=== PATIENT | female | born 1955 | race Caucasian/White ===

== ENCOUNTER 2021-08-26 09:41 | Outpatient (REF) | payer MEDICARE, SELFPAY ==
[2021-08-26 11:40] LABS: Hematocrit 36.1 % (37.0-47.0); Hemoglobin 12.4 g/dl (12.0-16.0); Mean Corpuscular HGB Conc 34.3 g/dl (31.0-35.0); Mean Corpuscular Hemoglobin 31.2 pg (27.0-33.0); Mean Corpuscular Volume 90.9 fL (80.0-98.0); Mean Platelet Volume 9.5 fL (9.4-12.3); Platelet Count 233 X10*3/uL (160-400); Red Blood Count 3.97 X10*6/uL (4.20-5.50); Red Cell Distribution Width 14.5 % (11.0-16.0); White Blood Count 4.6 X10*3/uL (4.8-10.8)
[2021-08-26 12:21] LABS: Alanine Aminotransferase 17 U/L (0-31); Albumin Level 4.3 g/dL (3.5-5.0); Alkaline Phosphatase 64 U/L (39-117); Anion Gap 11 (12-20); Aspartate Amino Transferase 19 U/L (5-31); Bilirubin Total 0.7 mg/dL (0.0-1.0); Blood Urea Nitrogen 32 mg/dL (9-16); Calcium 9.6 mg/dL (8.4-10.2); Carbon Dioxide 29 mmol/L (22-29); Chloride 99 mmol/L (96-108); Cholesterol 193 mg/dL; Estimated Glomerular Filt Rate > 60; Glucose Fasting 111 mg/dL (60-99); HDL Cholesterol 62 mg/dL; LDL Cholesterol Calculated 117 mg/dl; Potassium 3.8 mmol/L (3.3-5.1); Sodium 135 mmol/L (135-145); Total Protein 6.5 g/dL (6.5-8.0); Triglycerides 72 mg/dL
[2021-08-26 12:27] LABS: TSH reflex Free T4 1.25 uIU/mL (0.32-4.0); Vitamin D 25-OH Total 45.4 ng/mL (>30)
== END 2021-08-26 09:42 | disposition home or self-care (01) ==
LOC: HO.HMGCLDS 09:41
PROVIDERS: Visit Provider Internal Medicine
DX: Z00.00 Encounter for general adult medical examination without abnormal findings (principal); I10 Essential (primary) hypertension
CPT/HCPCS: 36415; 80053; 80061; 82306; 84443; 85027

== ENCOUNTER 2022-02-13 08:17 | Outpatient (REF) | payer MEDICARE, SELFPAY ==
[2022-02-13 11:31] LABS: Appearance Urine Clear; Color Urine Yellow; Glucose Urine UA Negative (Negative); Leukocyte Esterase Urine Small (1+) (Negative); Nitrite Urine Negative (Negative); Urine Blood Negative (Negative); Urine Ketones Negative (Negative); Urine Protein Negative (Neg-Trace)
[2022-02-13 11:37] LABS: Estimated Average Glucose 91 mg/dL; Hemoglobin A1c % 4.8 %
[2022-02-13 11:44] LABS: Bacteria Urine None Seen (None Seen); Hyaline Casts Urine 0-2 /LPF (0-2); RBC Urine 0-2 /HPF (0-2); Squamous Epithelial Cell Urine 0-2 /HPF (0-2); UACC Culture Trigger YES; WBC Urine 0-5 /HPF (0-5)
[2022-02-13 11:59] LABS: Creatinine Urine 28.66 mg/dL; Microalbumin Urine < 5.0 mg/L
[2022-02-13 12:01] LABS: TSH reflex Free T4 1.28 uIU/mL (0.32-4.0)
[2022-02-13 12:06] LABS: Alanine Aminotransferase 15 U/L (0-31); Albumin Level 4.2 g/dL (3.5-5.0); Alkaline Phosphatase 66 U/L (39-117); Anion Gap 16 (12-20); Aspartate Amino Transferase 20 U/L (5-31); Bilirubin Total 0.8 mg/dL (0.0-1.0); Blood Urea Nitrogen 31 mg/dL (9-16); Calcium 8.8 mg/dL (8.4-10.2); Carbon Dioxide 26 mmol/L (22-29); Chloride 99 mmol/L (96-108); Cholesterol 182 mg/dL; Estimated Glomerular Filt Rate > 60; Glucose Fasting 106 mg/dL (60-99); HDL Cholesterol 64 mg/dL; LDL Cholesterol Calculated 103 mg/dl; Potassium 3.5 mmol/L (3.3-5.1); Sodium 137 mmol/L (135-145); Total Protein 6.4 g/dL (6.5-8.0); Triglycerides 79 mg/dL
== END 2022-02-13 08:18 | disposition home or self-care (01) ==
LOC: HO.HMGCLDS 08:17
PROVIDERS: PCP Internal Medicine; Visit Provider Internal Medicine
DX: Z00.00 Encounter for general adult medical examination without abnormal findings (principal); I10 Essential (primary) hypertension; R73.9 Hyperglycemia, unspecified
CPT/HCPCS: 36415; 80053; 80061; 81001; 82043; 83036; 84443

== ENCOUNTER 2022-03-08 07:43 | Outpatient (REF) | payer MEDICARE, SELFPAY ==
--- NOTE | ~2022-03-08 | XR_ITS ---
EXAMINATION: XR BILATERAL HIPS WITH AP PELVIS CLINICAL INFORMATION: M25.559 - Pain in unspecified hip. COMPARISON: None TECHNIQUE: AP and frog-leg lateral views of each hip and an AP view of the pelvis. FINDINGS: Minimal osteoarthritis is present in the hips and pubic symphysis. Hip joint spaces appear relatively well preserved, though small osteophytes are present. There is more moderate osteoarthritis in the sacroiliac joints. No fracture or malalignment. No aggressive osseous lesions. Degenerative spondylosis is evident in the lower lumbar spine. Numerous surgical clips are present within the lower abdomen and pelvis. No acute soft tissue findings. Enthesopathic spurring is present at the anterior superior iliac spines. XR/XR hip BI w PEL1V IMPRESSION: 1. 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 2. 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 3. Degenerative spondylosis in the lower lumbar spine.
== END 2022-03-08 07:44 | disposition home or self-care (01) ==
LOC: HO.HOSX 07:43
PROVIDERS: Visit Provider Physician Assistant
DX: M70.71 Other bursitis of hip, right hip (principal); M70.72 Other bursitis of hip, left hip
CPT/HCPCS: 20610; 73521; 99202; J1040

== ENCOUNTER 2023-09-19 10:22 | Outpatient (REF) | payer MEDICARE, SELFPAY ==
[2023-09-19 13:36] LABS: MANUAL DIFF FLAG NO
[2023-09-19 13:50] LABS: Basophils Percent Auto 0.7 % (0-2); Eosinophils Absolute Auto 0.1 X10*3/uL (0.0-0.4); Eosinophils Percent Auto 2.3 % (0-4); Hematocrit 37.2 % (37.0-47.0); Hemoglobin 12.4 g/dl (12.0-16.0); Imm Gran Abs Auto 0.02 X10*3/uL (0.00-0.03); Imm Gran Pct Auto 0.4 % (0.0-0.4); Lymphocytes Absolute Auto 2.9 X10*3/uL (1.2-4.9); Lymphocytes Percent Auto 51.5 % (20-40); Mean Corpuscular HGB Conc 33.3 g/dl (31.0-35.0); Mean Corpuscular Hemoglobin 31.4 pg (27.0-33.0); Mean Corpuscular Volume 94.2 fL (80.0-98.0); Mean Platelet Volume 9.2 fL (9.4-12.3); Monocytes Absolute Auto 0.5 X10*3/uL (0.1-1.2); Monocytes Percent Auto 9.2 % (2-11); Neutrophils Percent Auto 35.9 % (45-73); Platelet Count 245 X10*3/uL (160-400); Red Blood Count 3.95 X10*6/uL (4.20-5.50); Red Cell Distribution Width 14.6 % (11.0-16.0); White Blood Count 5.7 X10*3/uL (4.8-10.8)
[2023-09-19 14:36] LABS: Alanine Aminotransferase 15 U/L (0-31); Albumin Level 4.1 g/dL (3.5-5.0); Alkaline Phosphatase 83 U/L (39-117); Anion Gap 11 (12-20); Aspartate Amino Transferase 18 U/L (5-31); Bilirubin Total 0.4 mg/dL (0.0-1.0); Blood Urea Nitrogen 20 mg/dL (9-16); Calcium 9.1 mg/dL (8.4-10.2); Carbon Dioxide 27 mmol/L (22-29); Chloride 105 mmol/L (96-108); Cholesterol 184 mg/dL (<200); Estimated Glomerular Filt Rate > 60; Glucose Fasting 104 mg/dL (60-99); HDL Cholesterol 66 mg/dL (>40); LDL Cholesterol Calculated 100 mg/dL (<100); Potassium 3.8 mmol/L (3.3-5.1); Sodium 139 mmol/L (135-145); Total Protein 6.7 g/dL (6.5-8.0); Triglycerides 91 mg/dL (<150)
[2023-09-19 14:40] LABS: TSH reflex Free T4 0.74 uIU/mL (0.32-4.0); Vitamin D 25-OH Total 68.1 ng/mL (>30)
== END 2023-09-19 10:23 | disposition home or self-care (01) ==
LOC: HO.HMGCLDS 10:22
PROVIDERS: PCP Internal Medicine; Visit Provider Internal Medicine
DX: Z00.00 Encounter for general adult medical examination without abnormal findings (principal); M85.80 Other specified disorders of bone density and structure, unspecified site; R73.9 Hyperglycemia, unspecified; I10 Essential (primary) hypertension
CPT/HCPCS: 36415; 80053; 80061; 82306; 84443; 85025

== ENCOUNTER 2023-09-22 07:26 | Outpatient (AMB) | payer MEDICARE, SELFPAY ==
--- NOTE | 2023-09-22 07:38 | MHC.PC.OV ---
Vital Signs 09/22/23 07:44 Height 4 ft 11 in Weight 175 lb BMI 35.3 BP 135/82 Blood Pressure Location Lt brachial Position Sitting Pulse 82 Pulse Source Pulse Oximeter Pulse Oximetry (%) 99 Oxygen Delivery Method Room Air Intake Visit Reasons: Annual PE Intake Note: Pt is here today for ehr PE: pt states hasn't taken b/p this morning Allergies azithromycin Allergy (Unknown, Verified 09/22/23 07:41) nausea bacitracin Allergy (Unknown, Verified 09/22/23 07:41) made the eye infection worst Sulfa (Sulfonamide Antibiotics) Allergy (Unknown, Verified 09/22/23 07:41) pt dont remember Medication List - Last Reconciled 09/22/23 by Cortney Gan MD ascorbic acid (vitamin C) 1 g PO DAILY cholecalciferol (vitamin D3) PO .daily fluticasone propionate 50 mcg/actuation (Flonase Allergy Relief) 1 spray intranasal DAILY lisinopril-hydrochlorothiazide 20-25 mg 1 tab PO DAILY multivitamin (Daily Multi-Vitamin) PO DAILY Saccharomyces boulardii (Daily Probiotic (S. boulardii)) PO .daily vitamin B complex PO .daily Tobacco use date assessed: 09/22/23 Fall risk assessment: No Falls in past year Last assessed Fall Risk: 09/22/23 Dental Screening Dental Screen Date: 09/22/23 Did you have a dental visit in the last 12 months?: No Was dental information given to patient?: No HPI Annual PE HPI Details Patient presents for physical PFSH Medical History (Updated 09/22/23 @ 08:19 by Cortney Gan MD) Hyperglycemia Normal breast exam Osteopenia Ovarian cancer Bursitis Acid reflux Hypertension Surgical History (Updated 09/22/23 @ 08:10 by Cortney Gan MD) H/O: hysterectomy Family History Mother Heart disease Brain aneurysm Father Brain aneurysm Social History Housing: House Patient Tobacco Use Status: Former Tobacco user (46 years ago ) Tobacco use type: Cigarette Years Smoked: 1 year e-Cigarette/Vaping Use: Never Used Second Hand Smoke Exposure: Yes service: No Current occupational status: employed 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 1. Little interest or pleasure in doing things: not at all 2. Feeling down, depressed, or hopeless: not at all 3. Trouble falling or staying asleep, or sleeping too much: several days 4. Feeling tired or having little energy: several days 5. Poor appetite or overeating: not at all 6. Feeling bad about yourself - or that you are a failure or have let yourself or your family down: not at all 7. Trouble concentrating on things, such as reading the newspaper or watching television: not at all 8. Moving or speaking so slowly that other people could have noticed. Or the opposite - being so fidgety or restless that you have been moving around a lot more than usual: not at all 9. Thoughts that you would be better off or of hurting yourself in some way: not at all Total score: 2 Depression Screening Interpretation: Negative Depression Screening Done: Yes Source: Developed by Drs. Brent Silverio, Michelle Hankins, Efraín Macdonald and colleagues, with an educational aura from [employer]. Thrive Questionnaire Date Thrive assessed: 09/22/23 I am a: Patient What is your living situation today?: I have a steady place to live Within the past 12 months, did the food you bought not last and you didn't have the money to get more?: Never true Within the past 12 months, did you worry whether your food would run out before you got money to buy more?: Never true Do you have trouble paying for medicines?: No Do you have trouble getting transportation to medical appointments?: No Do you have trouble paying your heating and electricity bill?: No Do you have trouble taking care of your child, family member or friend?: No Do you have trouble with day-to-day activities such as bathing, preparing meals, shopping, managing finances, etc.?: No Are you currently unemployed and looking for a job?: No Are you interested in more education?: No THRIVE Score: 0 AUDIT C Alcohol Use Questionnaire (AUDIT-C) 1. How often do you have a drink containing alcohol?: Monthly or less 2. How many drinks containing alcohol do you have on a typical day when you are drinking?: 1 or 2 3. How often do you have six or more drinks on one occasion?: Never Total Score: 1 CHONG-7 AMB Questionnaire CHONG-7 Date CHONG - 7 assessed: 09/22/23 Feeling nervous, anxious, or on edge: 1 = Several days Not being able to stop or control worryin = Not at all Worrying too much about different things: 1 = Several days Trouble relaxin = Several days Being so restless that it is hard to sit still: 0 = Not at all Becoming easily annoyed or irritable: 1 = Several days Feeling afraid as if something awful might happen: 1 = Several days Total CHONG-7 score (0-4 normal; 5-9 mild; 10-14 moderate; 15-21 severe): 5 Source: Developed by Drs. Brent Silverio, Michelle Hankins, Efraín Macdonald and colleagues, with an educational aura from [employer]. Review of Systems Const All systems reviewed & are unremarkable except as noted in HPI and below Reports no additional complaints Eyes Reports no additional complaints ENT Reports no additional complaints Card Reports no additional complaints Resp Reports no additional complaints GI Reports no additional complaints Reports no additional complaints Physical exam (Primary Care) Vital Signs: Last Vital Signs Pulse 82 09/22/23 07:44 BP 154/82 H 09/22/23 07:44 Pulse Ox 99 09/22/23 07:44 Oxygen Delivery Method Room Air 09/22/23 07:44 BMI result Body Mass Index 35.3 Tobacco/Smoking Status: Tobacco use Status Tobacco use date assessed 09/22/23 09/22/23 07:47 Patient Tobacco Use Status Former Tobacco user (46 09/22/23 07:40 years ago ) Tobacco use type Cigarette 09/22/23 07:40 e-Cigarette/Vaping Use Never Used 09/22/23 07:47 PHQ-9: PHQ-9 Score PHQ-9: Total score 2 09/22/23 07:47 Depression Screening Interpretation: Negative Thrive Assessment: Date of Thrive Assessment Date Thrive assessed 09/22/23 09/22/23 07:47 Const General: no acute distress HENMT Head: Yes normal to inspection Ears: hearing grossly normal bilaterally General nose exam: Normal external nose present Face and sinus: Yes normal facial exam Mouth: Normal oral and palatal mucosa present Throat: Yes posterior oropharynx normal Eyes General: appearance normal, both eyes and all related structures Neck Neck: Yes no lymphadenopathy and Yes supple Resp Effort & Inspection: normal respiratory effort Auscultation: clear to auscultation bilaterally Cardio Rhythm: regular rhythm Heart sounds: S1 normal heart sound present and S2 normal heart sound present GI Inspection: Yes normal to inspection Palpation (GI): Soft to palpation Percussion: Yes normal to percussion Auscultation: normal bowel sounds Assessment and Plan Assessment & Plan (1) Hx of colonoscopy: Comment: 2022, [facility] 1 polyp, recheck 5 yrs Code(s): Z98.890 - Other specified postprocedural states (2) Hypertension: Code(s): I10 - Essential (primary) hypertension Plan: Restart lisinopril with hydrochlorothiazide, low-sodium diet regular physical activity discussed with the patient follow-up in 2 months (3) Annual physical exam: Code(s): Z00.00 - Encounter for general adult medical examination without abnormal findings Plan: Well-balanced diet regular physical activity discussed with the patient she is up-to-date with the mammogram and colonoscopy Medications: Refilled lisinopril-hydrochlorothiazide 20-25 mg 1 tab PO DAILY 90 tabs 3RF Coding Level of Care Code Est Pt Prev Care >65y(05677) Diagnoses Hx of colonoscopy Z98.890 Hypertension I10 Annual physical exam Z00.00
[2023-09-22 07:44] VITALS: BP 135/82; PULSE 82; O2SAT 99; BMI 35.3
== END 2023-09-22 08:21 | disposition home or self-care (01) ==
PROVIDERS: PCP Internal Medicine; Visit Provider Internal Medicine
DX: Z98.890 Other specified postprocedural states (principal); I10 Essential (primary) hypertension; Z00.00 Encounter for general adult medical examination without abnormal findings
CPT/HCPCS: 99397

== ENCOUNTER 2023-11-14 09:42 | Outpatient (AMB) | payer MEDICARE, SELFPAY ==
[2023-11-14 09:52] VITALS: BP 110/72; PULSE 73; O2SAT 98; BMI 35.3
--- NOTE | 2023-11-14 09:52 | A.OFFPC_ITS ---
Vital Signs 11/14/23 09:52 Height 4 ft 11 in Weight 175 lb BMI 35.3 BP 110/72 Blood Pressure Location Rt brachial Position Sitting Pulse 73 Pulse Source Pulse Oximeter Pulse Oximetry (%) 98 Oxygen Delivery Method Room Air Intake Visit Reasons: 2 month follow up Intake Note: Pt is here today for 2 months follow up visit. Allergies azithromycin Allergy (Unknown, Verified 11/14/23 09:54) nausea bacitracin Allergy (Unknown, Verified 11/14/23 09:54) made the eye infection worst Sulfa (Sulfonamide Antibiotics) Allergy (Unknown, Verified 11/14/23 09:54) pt dont remember Tobacco use date assessed: 11/14/23 Fall risk assessment: No Falls in past year Last assessed Fall Risk: 11/14/23 Dental Screening Dental Screen Date: 09/22/23 HPI 2 month follow up HPI Details Patient presents for the follow-up of hypertension, stable on current medications PFSH Medical History Hyperglycemia Normal breast exam Osteopenia Ovarian cancer Bursitis Acid reflux Hypertension Surgical History H/O: hysterectomy Family History Mother Heart disease Brain aneurysm Father Brain aneurysm Social History Housing: House Patient Tobacco Use Status: Former Tobacco user (46 years ago ) Tobacco use type: Cigarette Years Smoked: 1 year e-Cigarette/Vaping Use: Never Used Second Hand Smoke Exposure: Yes service: No Current occupational status: employed 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 Brent Silverio, Michelle Hankins, Efraín Macdonald and colleagues, with an educational aura from [employer]. Review of Systems Const All systems reviewed & are unremarkable except as noted in HPI and below Reports no additional complaints Eyes Reports no additional complaints ENT Reports no additional complaints Card Reports no additional complaints Resp Reports no additional complaints GI Reports no additional complaints Reports no additional complaints Physical exam (Primary Care) Vital Signs: Last Vital Signs Pulse 73 11/14/23 09:52 BP 110/72 11/14/23 09:52 Pulse Ox 98 11/14/23 09:52 Oxygen Delivery Method Room Air 11/14/23 09:52 BMI result Body Mass Index 35.3 Tobacco/Smoking Status: Tobacco use Status Tobacco use date assessed 11/14/23 11/14/23 09:57 Patient Tobacco Use Status Former Tobacco user (46 11/14/23 09:57 years ago ) Tobacco use type Cigarette 11/14/23 09:57 e-Cigarette/Vaping Use Never Used 11/14/23 09:57 Thrive Assessment: Date of Thrive Assessment Date Thrive assessed 09/22/23 11/14/23 09:57 Const General: no acute distress HENMT Head: Yes normal to inspection General nose exam: Normal external nose present Mouth: Normal oral and palatal mucosa present Throat: Yes posterior oropharynx normal Eyes General: appearance normal, both eyes and all related structures Neck Neck: Yes supple Resp Effort & Inspection: normal respiratory effort Auscultation: clear to auscultation bilaterally Cardio Rhythm: regular rhythm Heart sounds: S1 normal heart sound present and S2 normal heart sound present GI Inspection: Yes normal to inspection Assessment and Plan Assessment & Plan (1) Hypertension: Code(s): I10 - Essential (primary) hypertension Plan: Continue lisinopril with hydrochlorothiazide (2) Hyperglycemia: Code(s): R73.9 - Hyperglycemia, unspecified Plan: ADA diet regular exercise weight loss discussed with the patient (3) [facility]: [facility] Code[facility]s): M85.80 - Other specified disorders of bone density and structure, unspecified site Plan: Continue vitamin-D. 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 Coding Level of Care Code Est Pt Level 3 (81279) Diagnoses Hypertension I10 Hyperglycemia R73.9 Osteopenia M85.80 Ovarian cancer C56.9
== END 2023-11-14 10:41 | disposition home or self-care (01) ==
PROVIDERS: PCP Internal Medicine; Visit Provider Internal Medicine
DX: I10 Essential (primary) hypertension (principal); R73.9 Hyperglycemia, unspecified; M85.80 Other specified disorders of bone density and structure, unspecified site; C56.9 Malignant neoplasm of unspecified ovary
CPT/HCPCS: 99213

== ENCOUNTER 2024-11-08 07:54 | Outpatient (REF) | payer MEDICARE, SELFPAY ==
[2024-11-08 10:24] LABS: MANUAL DIFF FLAG NO
[2024-11-08 10:41] LABS: Basophils Absolute Auto 0.1 X10*3/uL (0.0-0.2); Basophils Percent Auto 0.9 % (0-2); Eosinophils Absolute Auto 0.1 X10*3/uL (0.0-0.4); Eosinophils Percent Auto 1.6 % (0-4); Hematocrit 34.5 % (37.0-47.0); Hemoglobin 11.8 g/dl (12.0-16.0); Imm Gran Abs Auto 0.06 X10*3/uL (0.00-0.03); Imm Gran Pct Auto 0.9 % (0.0-0.4); Lymphocytes Absolute Auto 2.2 X10*3/uL (1.2-4.9); Mean Corpuscular HGB Conc 34.2 g/dl (31.0-35.0); Mean Corpuscular Hemoglobin 30.5 pg (27.0-33.0); Mean Corpuscular Volume 89.1 fL (80.0-98.0); Mean Platelet Volume 9.2 fL (9.4-12.3); Monocytes Absolute Auto 0.6 X10*3/uL (0.1-1.2); Monocytes Percent Auto 8.8 % (2-11); Neutrophils Absolute Auto 3.8 x10*3/uL (2.0-8.3); Neutrophils Percent Auto 55.8 % (45-73); Platelet Count 282 X10*3/uL (160-400); Red Blood Count 3.87 X10*6/uL (4.20-5.50); Red Cell Distribution Width 14.8 % (11.0-16.0); White Blood Count 6.8 X10*3/uL (4.8-10.8)
[2024-11-08 10:43] LABS: Estimated Average Glucose 97 mg/dL
[2024-11-08 11:10] LABS: Alanine Aminotransferase 14 U/L (0-31); Albumin Level 4.4 g/dL (3.5-5.0); Alkaline Phosphatase 91 U/L (39-117); Anion Gap 13 (12-20); Aspartate Amino Transferase 23 U/L (5-31); Bilirubin Total 0.6 mg/dL (0.0-1.0); Blood Urea Nitrogen 22 mg/dL (9-16); Calcium 9.3 mg/dL (8.4-10.2); Carbon Dioxide 26 mmol/L (22-29); Chloride 104 mmol/L (96-108); Cholesterol 178 mg/dL (<200); Estimated Glomerular Filt Rate > 60; Glucose Fasting 108 mg/dL (60-99); HDL Cholesterol 56 mg/dL (>40); Iron 65 mcg/dL (30-160); LDL Cholesterol Calculated 105 mg/dL (<100); Percent Iron Saturation 26 % (15-50); Potassium 3.6 mmol/L (3.3-5.1); Sodium 139 mmol/L (135-145); Total Iron Binding Capacity 247 mcg/dL (228-428); Total Protein 6.8 g/dL (6.5-8.0); Triglycerides 87 mg/dL (<150); Unsaturated Iron Binding 182 ug/dL
[2024-11-08 11:28] LABS: TSH reflex Free T4 1.31 uIU/mL (0.32-4.0)
== END 2024-11-08 07:55 | disposition home or self-care (01) ==
LOC: HO.HMGCLDS 07:54
PROVIDERS: PCP Internal Medicine; Visit Provider Internal Medicine
DX: Z00.00 Encounter for general adult medical examination without abnormal findings (principal); I10 Essential (primary) hypertension; R73.9 Hyperglycemia, unspecified
CPT/HCPCS: 36415; 80053; 80061; 83036; 83540; 84443; 85025

== ENCOUNTER 2024-11-12 14:00 | Outpatient (AMB) | payer MEDICARE, SELFPAY ==
[2024-11-12 14:03] VITALS: BP 120/78; PULSE 83; TEMP 36.8; O2SAT 97; BMI 34.6
--- NOTE | 2024-11-12 14:03 | MHC.PC.OV ---
Vital Signs 11/12/24 14:03 Height 4 ft 11 in Weight 171 lb 6 oz BMI 34.6 BP 120/78 Blood Pressure Location Lt brachial Position Sitting Pulse 83 Pulse Source Pulse Oximeter Temp 98.3 F Temp Source Oral Pulse Oximetry (%) 97 Oxygen Delivery Method Room Air Intake Visit Reasons: PE Allergies azithromycin Allergy (Unknown, Verified 11/12/24 14:06) nausea bacitracin Allergy (Unknown, Verified 11/12/24 14:06) made the eye infection worst Sulfa (Sulfonamide Antibiotics) Allergy (Unknown, Verified 11/12/24 14:06) pt dont remember Medication List - Last Reconciled 11/12/24 by Cortney Gan MD ascorbic acid (vitamin C) 1 g PO DAILY cholecalciferol (vitamin D3) PO .daily ferrous sulfate 325 mg PO DAILY fluticasone propionate 50 mcg/actuation (Flonase Allergy Relief) 1 spray intranasal DAILY lisinopril-hydrochlorothiazide 20-25 mg 1 tab PO DAILY multivitamin (Daily Multi-Vitamin) PO DAILY Saccharomyces boulardii (Daily Probiotic (S. boulardii)) PO .daily vitamin B complex PO .daily Tobacco use date assessed: 11/12/24 Fall risk assessment: 1 Fall in past year Last assessed Fall Risk: 11/12/24 Dental Screening Dental Screen Date: 11/12/24 Did you have a dental visit in the last 12 months?: No Did you have a dental problem in the last 6 months where you did not have access to dental care?: No Was dental information given to patient?: Patient declined HPI PE HPI Details Patient presents for physical PFSH Medical History Hyperglycemia Normal breast exam Osteopenia Ovarian cancer Bursitis Acid reflux Hypertension Surgical History (Updated 11/12/24 @ 14:37 by Cortney Gan MD) Hx of colonoscopy H/O: hysterectomy Family History Mother Heart disease Brain aneurysm Father Brain aneurysm Social History Housing: House Patient Tobacco Use Status: Former Tobacco user Tobacco use type: Cigarette Years Smoked: 1 year e-Cigarette/Vaping Use: Never Used Second Hand Smoke Exposure: Yes service: No Current occupational status: employed 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 1. Little interest or pleasure in doing things: not at all 2. Feeling down, depressed, or hopeless: not at all 3. Trouble falling or staying asleep, or sleeping too much: not at all 4. Feeling tired or having little energy: several days 5. Poor appetite or overeating: not at all 6. Feeling bad about yourself - or that you are a failure or have let yourself or your family down: not at all 7. Trouble concentrating on things, such as reading the newspaper or watching television: not at all 8. Moving or speaking so slowly that other people could have noticed. Or the opposite - being so fidgety or restless that you have been moving around a lot more than usual: not at all 9. Thoughts that you would be better off or of hurting yourself in some way: not at all Total score: 1 Depression Screening Interpretation: Negative Depression Screening Done: Yes 46970 - PHQ-9 Billing: Yes Source: Developed by Drs. Brent Silverio, Michelle Hankins, Efraín Macdonald and colleagues, with an educational aura from [employer]. Thrive Questionnaire Date Thrive assessed: 11/12/24 I am a: Patient What is your living situation today?: I have a steady place to live Within the past 12 months, did the food you bought not last and you didn't have the money to get more?: Never true Within the past 12 months, did you worry whether your food would run out before you got money to buy more?: Never true Do you have trouble paying for medicines?: No Do you have trouble getting transportation to medical appointments?: No Do you have trouble paying your heating and electricity bill?: I choose not to answer this question Do you have trouble taking care of your child, family member or friend?: I choose not to answer this question Do you have trouble with day-to-day activities such as bathing, preparing meals, shopping, managing finances, etc.?: No Are you currently unemployed and looking for a job?: Yes Are you interested in more education?: No Please select the resources that you would like help with: None Currently or been in a relationship where the following occur: No concerns reported THRIVE Score: 0 AUDIT C Alcohol Use Questionnaire (AUDIT-C) 1. How often do you have a drink containing alcohol?: Monthly or less 2. How many drinks containing alcohol do you have on a typical day when you are drinking?: 1 or 2 3. How often do you have six or more drinks on one occasion?: Never Total Score: 1 CHONG-7 AMB Questionnaire CHONG-7 Date CHONG - 7 assessed: 11/12/24 Feeling nervous, anxious, or on edge: 0 = Not at all Not being able to stop or control worryin = Not at all Worrying too much about different things: 0 = Not at all Trouble relaxin = Not at all Being so restless that it is hard to sit still: 0 = Not at all Becoming easily annoyed or irritable: 0 = Not at all Feeling afraid as if something awful might happen: 0 = Not at all Total CHONG-7 score (0-4 normal; 5-9 mild; 10-14 moderate; 15-21 severe): 0 Source: Developed by Drs. Brent Silverio, Michelle Hankins, Efraín Macdonald and colleagues, with an educational aura from [employer]. CHONG-7 Assessment Billing CHONG-7 Assessment Tool: CHONG-7 Assessment 18973 Review of Systems Const All systems reviewed & are unremarkable except as noted in HPI and below Eyes Reports no additional complaints ENT Reports no additional complaints Card Reports no additional complaints Resp Reports no additional complaints GI Reports no additional complaints Reports no additional complaints Physical exam (Primary Care) Vital Signs: Last Vital Signs Temp 98.3 F 11/12/24 14:03 Pulse 83 11/12/24 14:03 BP 142/90 H 11/12/24 14:03 Pulse Ox 97 11/12/24 14:03 Oxygen Delivery Method Room Air 11/12/24 14:03 BMI result Body Mass Index 34.6 Tobacco/Smoking Status: Tobacco use Status Tobacco use date assessed 11/12/24 11/12/24 14:08 Patient Tobacco Use Status Former Tobacco user 11/12/24 14:08 Tobacco use type Cigarette 11/12/24 14:08 e-Cigarette/Vaping Use Never Used 11/12/24 14:08 PHQ-9: PHQ-9 Score PHQ-9: Total score 1 11/12/24 14:08 Depression Screening Interpretation: Negative Thrive Assessment: Date of Thrive Assessment Date Thrive assessed 11/12/24 11/12/24 14:08 Currently or been in a relationship where the following occur: No concerns reported Const General: no acute distress HENMT Head: Yes normal to inspection Face and sinus: Yes normal facial exam Mouth: Normal oral and palatal mucosa present Eyes General: appearance normal, both eyes and all related structures Neck Neck: Yes supple Resp Effort & Inspection: normal respiratory effort Auscultation: clear to auscultation bilaterally Cardio Rhythm: regular rhythm Heart sounds: S1 normal heart sound present and S2 normal heart sound present GI Inspection: Yes normal to inspection Palpation (GI): Soft to palpation Percussion: Yes normal to percussion Auscultation: normal bowel sounds Coding Level of Care Code Est Pt Prev Care >65y(77188) Diagnoses Hx of colonoscopy Z98.890 Annual physical exam Z00.00 Hypertension I10 Additional Codes CHONG-7 Assessment Billing - CHONG-7 Assessment Tool: CHONG-7 Assessment [id number] ([id number]) PHQ-9 - 32777 - PHQ-9 Billing: Yes ([id number]) Assessment & Plan Assessment & Plan (1) Hx of colonoscopy: Comment: 2022, [facility] 1 polyp, recheck 5 yrs Code(s): Z98.890 - Other specified postprocedural states Category: Surgical Plan: f/u with GI (2) Annual physical exam: Code(s): Z00.00 - Encounter for general adult medical examination without abnormal findings Category: Medical Plan: Well-balanced diet regular physical activity discussed with the patient. She will schedule mammogram (3) Hypertension: Code(s): I10 - Essential (primary) hypertension Category: Medical Plan: Continue lisinopril with hydrochlorothiazide Orders: Orders Complete Blood Count Auto Diff 1 Year I10 - Essential (primary) hypertension, R73.9 - Hyperglycemia, unspecified, Z00.00 - Encounter for general adult medical examination without abnormal findings IRON PROFILE 1 Year I10 - Essential (primary) hypertension, R73.9 - Hyperglycemia, unspecified, Z00.00 - Encounter for general adult medical examination without abnormal findings Immunofixation Pnl, Serum 1 Year I10 - Essential (primary) hypertension, R73.9 - Hyperglycemia, unspecified, Z00.00 - Encounter for general adult medical examination without abnormal findings Comprehensive [place]. Panel Fast 1 Year I10 - Essential (primary) hypertension, R73.9 - Hyperglycemia, unspecified, Z00.00 - Encounter for general adult medical examination without abnormal findings Vitamin D 25-OH Total 1 Year I10 - Essential (primary) hypertension, R73.9 - Hyperglycemia, unspecified, Z00.00 - Encounter for general adult medical examination without abnormal findings Lipid Panel 1 Year I10 - Essential (primary) hypertension, R73.9 - Hyperglycemia, unspecified, Z00.00 - Encounter for general adult medical examination without abnormal findings Vitamin B12 and Folate 1 Year I10 - Essential (primary) hypertension, R73.9 - Hyperglycemia, unspecified, Z00.00 - Encounter for general adult medical examination without abnormal findings
== END 2024-11-12 14:46 | disposition home or self-care (01) ==
LOC: HO.HMCC 14:00
PROVIDERS: PCP Internal Medicine; Visit Provider Internal Medicine
DX: Z98.890 Other specified postprocedural states (principal); Z00.00 Encounter for general adult medical examination without abnormal findings; I10 Essential (primary) hypertension

== ENCOUNTER → 2024-11-12 14:00 | Outpatient (BNVA) | payer MEDICARE, SELFPAY | PROVIDERS: PCP Internal Medicine; Visit Provider Internal Medicine | DX: Z00.00 Encounter for general adult medical examination without abnormal findings (principal); I10 Essential (primary) hypertension; R73.9 Hyperglycemia, unspecified; Z98.890 Other specified postprocedural states | CPT/HCPCS: 96127; 99397 ==

== ENCOUNTER 2025-01-28 12:59 | Outpatient (AMB) | payer MEDICARE, SELFPAY ==
[2025-01-28 13:19] VITALS: BP 150/82; PULSE 88; TEMP 36.8; O2SAT 97; BMI 33.4
--- NOTE | 2025-01-28 13:19 | AM.OFFWIN_ITS ---
Intake Vital Signs 01/28/25 13:19 Height 4 ft 11 in Weight 165 lb 4 oz BMI 33.4 BP 150/82 H Blood Pressure Location Lt brachial Position Sitting Pulse 88 Pulse Source Pulse Oximeter Temp 98.2 F Temp Source Oral Pulse Oximetry (%) 97 Oxygen Delivery Method Room Air Intake Visit Reasons: EP Joint pain, whole body Patient Tobacco Use Status: Former Tobacco user Residential Care Officer Required: No Is last menstrual period known: No Post menopausal: Yes Patient : No Allergies azithromycin Allergy (Unknown, Verified 01/28/25 13:24) nausea bacitracin Allergy (Unknown, Verified 01/28/25 13:24) made the eye infection worst Sulfa (Sulfonamide Antibiotics) Allergy (Unknown, Verified 01/28/25 13:24) pt dont remember Medication List - Last Reconciled 01/28/25 by RITA Mcclain-C ascorbic acid (vitamin C) 1 g PO DAILY cholecalciferol (vitamin D3) PO .daily ferrous sulfate 325 mg PO DAILY fluticasone propionate 50 mcg/actuation (Flonase Allergy Relief) 1 spray intranasal DAILY lisinopril-hydrochlorothiazide 20-25 mg 1 tab PO DAILY multivitamin (Daily Multi-Vitamin) PO DAILY Saccharomyces boulardii (Daily Probiotic (S. boulardii)) PO .daily vitamin B complex PO .daily Do you need a note to return to daycare/school/sports/work: No HPI HPI Comments History of Present Illness Details History of Present Illness - The patient is a 69-year-old female pr esenting with 4 months of joint pain and difficulty with mobility, worsening over the last few weeks. joint pain in shoulders, wrists, knees, and hips - The joint pain has been progressively worsening, making it extremely hard to get out of bed and off the toilet. - The pain affects the shoulders, wrists , knees, and hips, with associated swelling in the wrists. - The patient has difficulty gripping ob jects due to pain. Also having some tremors in hands. - She has been using ibuprofen and Tylen ol, which provide some relief, but is concerned about their impact on her blood pressure. - The patient has tried diclofenac gel, which offers limited relief. - She has a history of high blood pressu re, which is slightly elevated today. - The patient underwent testing for Lyme disease a month ago, which was [facility], not at this facility. - She had a complete hysterectomy at age 34 and was on estrogen replacement therapy, which she discontinued. Physical Exam General: Cooperative, healthy appearing, comfortable, no acute distress and well developed Orientation: Patient oriented x3 Limitations: Difficulty getting out of bed and off the toilet due to joint pain Head: Normal to inspection Ears: Hearing grossly normal bilaterally Nose: Normal External nose present Face and sinus: Normal facial exam Eyes: Appearance normal, both eyes and all related structures Neck: Normal visual inspection and Yes full ROM Respiratory: Normal respiratory effort and able to speak in complete sentences. Skin: No rashes or lesions noted Neuro: Patient oriented x3, careful gait Extremities: Swelling in wrists, BL UE full ROM except for right shoulder PFSH Medical History (Updated 01/28/25 @ 13:56 by Oumou Mcdaniel PA-C) Hyperglycemia Normal breast exam Osteopenia Ovarian cancer Bursitis Acid reflux Hypertension Surgical History (Updated 11/12/24 @ 14:37 by Cortney Gan MD) Hx of colonoscopy H/O: hysterectomy Family History Mother Heart disease Brain aneurysm Father Brain aneurysm Social History Housing: House Patient Tobacco Use Status: Former Tobacco user Tobacco use type: Cigarette Years Smoked: 1 year e-Cigarette/Vaping Use: Never Used Second Hand Smoke Exposure: Yes service: No Current occupational status: employed 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 Cognitive needs: No Hearing needs: No Vision needs: Yes Review of Systems Const All systems reviewed & are unremarkable except as noted in HPI and below Physical Exam Vital Signs: Last Vital Signs Temp 98.2 F 01/28/25 13:19 Pulse 88 01/28/25 13:19 BP 150/82 H 01/28/25 13:19 Pulse Ox 97 01/28/25 13:19 Oxygen Delivery Method Room Air 01/28/25 13:19 BMI result Body Mass Index 33.4 Assessment & Plan Assessment & Plan (1) Polyarthralgia: Code(s): M25.50 - Pain in unspecified joint Plan: Plan - Prescribe diclofenac in pill form to be taken every 12 hours as needed for pain management, with a caution to use sparingly due to potential side effects on blood pressure and kidneys. - Likely OA. - Recommend setting an early childhood coordinator alarm to take diclofenac prior to waking up to alleviate morning stiffness. - Suggest consulting a microsoft application developer regarding the potential resumption of hormone replacement therapy for joint pain relief. - Consider referral to a strip picker if symptoms worsen, to rule out rheumatoid arthritis or other autoimmune conditions. - With tremor, hx of Parkinsons in family, follow up with PCP if worsens. Patient was informed and verbally consented to the use of an ambient scribe for clinic note documentation during this visit. Medications: New diclofenac sodium 50 mg PO Q12H PRN 20 tabs 0RF pain Coding Level of Care Code Est Pt Level 3 (06105) Diagnoses Polyarthralgia M25.50
== END 2025-01-28 13:57 | disposition home or self-care (01) ==
PROVIDERS: PCP Internal Medicine; Visit Provider Physician Assistant
DX: M25.50 Pain in unspecified joint (principal)

== ENCOUNTER → 2025-01-28 12:59 | Outpatient (BNVA) | payer MEDICARE, SELFPAY | PROVIDERS: PCP Internal Medicine; Visit Provider Physician Assistant | DX: M25.512 Pain in left shoulder (principal); M25.511 Pain in right shoulder; M25.532 Pain in left wrist; M25.531 Pain in right wrist; M25.561 Pain in right knee; M25.562 Pain in left knee; M25.551 Pain in right hip; M25.552 Pain in left hip | CPT/HCPCS: 99212 ==

== ENCOUNTER 2025-03-18 13:02 | Outpatient (REF) | payer MEDICARE, SELFPAY ==
--- NOTE | ~2025-03-18 | XR_ITS ---
EXAMINATION: X-ray bilateral shoulders CLINICAL INFORMATION: Pain COMPARISON: None TECHNIQUE: Bilateral shoulders each 3 views FINDINGS: Left shoulder: There is bone demineralization. Patchy lucencies in the visualized bones, could be related to the bone demineralization. No acute fracture or dislocation. Mild acromioclavicular arthritis. Subacromial spurring. Glenohumeral joint space is maintained. No abnormal soft tissue calcification. Right shoulder: Bone demineralization. Patchy lucencies in the osseous structures. No acute fracture or dislocation. Mild acromioclavicular arthritis. Glenohumeral joint space is maintained. No abnormal soft tissue calcification. XR/XR Shoulder Deondre min 2V IMPRESSION: *Bone demineralization. Patchy lucencies in the visualized bones, could be related to the demineralization. Correlate with patient's clinical history. If there is clinical concern for bony lesions, bone scan can be obtained. *Left shoulder: No acute fracture or malalignment. Mild acromioclavicular arthritis. *Right shoulder: No acute fracture. Mild acromioclavicular arthritis. Electronically signed by: Laron Carty MD 03/18/2025 02:34 PM EDT
--- NOTE | ~2025-03-18 | XR_ITS ---
Exam: XR HAND 3 VIEWS BILATERAL, bilateral hand x-rays TECHNIQUE: AP, lateral, and oblique views upper extremity, bilateral hands INDICATION: M25.50 - Pain in unspecified joint COMPARISON: None available. FINDINGS: RIGHT HAND: There is diffuse osteopina. There is mild narrowing of DIP joints with marginal osteophytes. There is mild narrowing of the third and fourth PIP joints. There is mild narrowing and marginal osteophyte involving the first IP joint. The first CMC joint demonstrates sclerosis, osteophytes, and mild subluxation. There is also an ossification lateral to the joint. There is 2 mm ulnar minus variance. LEFT HAND: There is osteopenia. There is 2 mm ulnar minus variance. There is moderate narrowing and osteophytes involving the DIP joints with ulnar variance in the second digit. There is mild narrowing and marginal osteophyte involving second and third joints. There is mild narrowing and osteophytes involving the IP joint and MCP joint of thumb. First CMC joint demonstrates sclerosis and marginal osteophytes. XR/XR Hand Bilat min 3v IMPRESSION: Right hand: Osteoarthritis. Osteopenia Left hand: Osteoarthritis Osteopenia Electronically signed by: Hunter Linda MD 03/18/2025 02:31 PM EDT
[2025-03-18 16:29] LABS: Uric Acid 5.5 mg/dL (2.4-5.7)
[2025-03-18 16:59] LABS: Erythrocyte Sedimentation Rate 21 MM/HR (0-20)
[2025-03-20 11:27] LABS: Anti Nuclear Antibody Screen NEGATIVE (NEGATIVE)
== END 2025-03-18 13:03 | disposition home or self-care (01) ==
LOC: HO.HMGCX 13:02
PROVIDERS: PCP Internal Medicine; Visit Provider Internal Medicine
DX: I10 Essential (primary) hypertension (principal); M25.511 Pain in right shoulder; M25.512 Pain in left shoulder; M79.642 Pain in left hand; M79.641 Pain in right hand
CPT/HCPCS: 36415; 73030; 73130; 84550; 85652; 86038; 86140; 86431; 99212

== ENCOUNTER 2025-03-18 13:02 | Outpatient (AMB) | payer MEDICARE, SELFPAY ==
--- NOTE | 2025-03-18 13:07 | MHC.PC.OV ---
Vital Signs 03/18/25 13:14 Height 4 ft 11 in Weight 162 lb BMI 32.7 BP 136/70 Blood Pressure Location Rt brachial Position Sitting Respiration 18 Pulse 93 Pulse Source Pulse Oximeter Temp 98.2 F Temp Source Oral Pulse Oximetry (%) 98 Oxygen Delivery Method Room Air Intake Visit Reasons: Join pain f/up from walk in clinic 01/28/25 Intake Note: Pt is here today for a follow up visit after being seen in a walk in. Allergies azithromycin Allergy (Unknown, Verified 03/18/25 13:20) nausea bacitracin Allergy (Unknown, Verified 03/18/25 13:20) made the eye infection worst Sulfa (Sulfonamide Antibiotics) Allergy (Unknown, Verified 03/18/25 13:20) pt dont remember diclofenac Adverse Reaction (Intermediate, Verified 03/18/25 13:31) fatigue Medication List - Last Reconciled 03/18/25 by Cortney Gan MD ascorbic acid (vitamin C) 1 g PO DAILY cholecalciferol (vitamin D3) PO .daily ferrous sulfate 325 mg PO DAILY fluticasone propionate 50 mcg/actuation (Flonase Allergy Relief) 1 spray intranasal DAILY lisinopril-hydrochlorothiazide 20-25 mg 1 tab PO DAILY multivitamin (Daily Multi-Vitamin) PO DAILY Saccharomyces boulardii (Daily Probiotic (S. boulardii)) PO .daily vitamin B complex PO .daily Tobacco use date assessed: 03/18/25 Fall risk assessment: No Falls in past year Last assessed Fall Risk: 03/18/25 Dental Screening Dental Screen Date: 11/12/24 HPI Join pain f/up from walk in clinic 01/28/25 HPI Details Patient presents complaining of progressively increasing pain and stiffness decreased range of motion in the right shoulder and both wrists. Patient reports bilateral hand morning stiffness lasting up to 30 minutes. She denies any injury surgery in the past joint swelling erythema or warmth. 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 1. Little interest or pleasure in doing things: not at all 2. Feeling down, depressed, or hopeless: not at all 3. Trouble falling or staying asleep, or sleeping too much: not at all 4. Feeling tired or having little energy: several days 5. Poor appetite or overeating: not at all 6. Feeling bad about yourself - or that you are a failure or have let yourself or your family down: not at all 7. Trouble concentrating on things, such as reading the newspaper or watching television: not at all 8. Moving or speaking so slowly that other people could have noticed. Or the opposite - being so fidgety or restless that you have been moving around a lot more than usual: not at all 9. Thoughts that you would be better off or of hurting yourself in some way: not at all Total score: 1 Depression Screening Interpretation: Negative Depression Screening Done: Yes Source: Developed by Drs. Brent Silverio, Michelle Hankins, Efraín Macdonald and colleagues, with an educational aura from [employer] Thrive Questionnaire Date Thrive assessed: 11/12/24 I am a: Patient What is your living situation today?: I have a steady place to live Within the past 12 months, did the food you bought not last and you didn't have the money to get more?: Often true Within the past 12 months, did you worry whether your food would run out before you got money to buy more?: Never true Do you have trouble paying for medicines?: No Do you have trouble getting transportation to medical appointments?: No Do you have trouble paying your heating and electricity bill?: I choose not to answer this question Do you have trouble taking care of your child, family member or friend?: I choose not to answer this question Do you have trouble with day-to-day activities such as bathing, preparing meals, shopping, managing finances, etc.?: No Are you currently unemployed and looking for a job?: Yes Are you interested in more education?: No Please select the resources that you would like help with: None Currently or been in a relationship where the following occur: No concerns reported THRIVE Score: 1 CHONG-7 AMB Questionnaire CHONG-7 Date CHONG - 7 assessed: 11/12/24 Feeling nervous, anxious, or on edge: 0 = Not at all Not being able to stop or control worryin = Not at all Worrying too much about different things: 0 = Not at all Trouble relaxin = Not at all Being so restless that it is hard to sit still: 0 = Not at all Becoming easily annoyed or irritable: 0 = Not at all Feeling afraid as if something awful might happen: 0 = Not at all Total CHONG-7 score (0-4 normal; 5-9 mild; 10-14 moderate; 15-21 severe): 0 Source: Developed by Drs. Brent Silverio, Michelle Hankins, Efraín Macdonald and colleagues, with an educational aura from [employer] Review of Systems Const All systems reviewed & are unremarkable except as noted in HPI and below ENT Reports no additional complaints Card Reports no additional complaints Resp Reports no additional complaints GI Reports no additional complaints Reports no additional complaints Physical exam (Primary Care) Vital Signs: Last Vital Signs Temp 98.2 F 03/18/25 13:14 Pulse 93 03/18/25 13:14 Resp 18 03/18/25 13:14 BP 136/70 03/18/25 13:14 Pulse Ox 98 03/18/25 13:14 Oxygen Delivery Method Room Air 03/18/25 13:14 BMI result Body Mass Index 32.7 Tobacco/Smoking Status: Tobacco use Status Tobacco use date assessed 03/18/25 03/18/25 13:25 Patient Tobacco Use Status Former Tobacco user 03/18/25 13:07 Tobacco use type Cigarette 03/18/25 13:07 e-Cigarette/Vaping Use Never Used 03/18/25 13:07 PHQ-9: PHQ-9 Score PHQ-9: Total score 1 03/18/25 13:26 Depression Screening Interpretation: Negative Thrive Assessment: Date of Thrive Assessment Date Thrive assessed 11/12/24 03/18/25 13:07 Currently or been in a relationship where the following occur: No concerns reported Const General: no acute distress HENMT Head: Yes normal to inspection Neck Neck: Yes supple Resp Effort & Inspection: normal respiratory effort Auscultation: clear to auscultation bilaterally Cardio Rhythm: regular rhythm Heart sounds: S1 normal heart sound present and S2 normal heart sound present GI Inspection: Yes normal to inspection Extrem Other: There is significantly decreased range of motion in both shoulder right more than left, both wrist with full range of motion , no joint tenderness erythema or swelling, there are no arthritic deformities of both hands, no tenderness over the PIP and DIP MCP joints b/l General: Yes no clubbing, cyanosis or edema Coding Level of Care Code Est Pt Level 3 (55279) Diagnoses Hypertension I10 Shoulder pain, right M25.511 Polyarthralgia M25.50 Assessment & Plan Assessment & Plan (1) Hypertension: Code(s): I10 - Essential (primary) hypertension Category: Medical Plan: Continue current medications (2) Shoulder pain, right: Code(s): M25.511 - Pain in right shoulder Category: Medical Plan: Obtain x-rays of both shoulders and refer for physical therapy (3) Polyarthralgia: Code(s): M25.50 - Pain in unspecified joint Category: Medical Plan: Check arthritis panel obtain x-rays of both hands to rule out erosions, supportive care discussed with the patient Orders: Orders C Reactive Protein Today M25.50 - Pain in unspecified joint XR Shoulder Deondre min 2V Today M25.50 - Pain in unspecified joint XR Hand Bilat min 3v Today M25.50 - Pain in unspecified joint Rheumatoid Factor Today M25.50 - Pain in unspecified joint CLAIRE Reflex Titer and Pattern Today M25.50 - Pain in unspecified joint Uric Acid Today M25.50 - Pain in unspecified joint Erythrocyte Sedimentation Rate Today M25.50 - Pain in unspecified joint PT Evaluation and Treatment Today M25.511 - Pain in right shoulder
[2025-03-18 13:14] VITALS: BP 136/70; PULSE 93; RESP 18; TEMP 36.8; O2SAT 98; BMI 32.7
== END 2025-03-18 13:59 | disposition home or self-care (01) ==
LOC: HO.HMCC 13:02
PROVIDERS: PCP Internal Medicine; Visit Provider Internal Medicine
DX: I10 Essential (primary) hypertension (principal); M25.511 Pain in right shoulder; M25.50 Pain in unspecified joint

== ENCOUNTER → 2025-03-18 13:46 | Outpatient (BNV) | payer MEDICARE, SELFPAY | PROVIDERS: PCP Internal Medicine; Visit Provider Radiology Diagnostic Ultrasound | DX: M19.011 Primary osteoarthritis, right shoulder (principal); M19.012 Primary osteoarthritis, left shoulder; M19.041 Primary osteoarthritis, right hand; M19.042 Primary osteoarthritis, left hand; M85.841 Other specified disorders of bone density and structure, right hand; M85.842 Other specified disorders of bone density and structure, left hand | CPT/HCPCS: 73030; 73130 ==